=== PATIENT | female | born 1965 | race Caucasian/White ===

== ENCOUNTER 2019-08-17 05:57 | Day surgery (SDC) | payer BC, OTHER, SELFPAY ==
[2019-08-16 14:01] VITALS: BMI 28.3
[2019-08-17 06:49] VITALS: BP 139/70; PULSE 63; RESP 18; TEMP 36.3; O2SAT 98
--- NOTE | 2019-08-17 06:55 | ANES.PREANES ---
Pre-Anesthetic Assessment Pre-Anesthetic Assessment: Height/Weight: Height 1.65 m Weight 77.111 kg Temp Pulse Resp BP Pulse Ox 97.4 F L 63 18 139/70 98 08/17/19 06:49 08/17/19 06:49 08/17/19 06:49 08/17/19 06:49 08/17/19 06:49 Preop Diagnosis: Right Carpal Tunnel Proposed Procedure: Operation Date: 08/17/19 07:00 Proposed Procedures p Carpal Tunnel Release [id number] G56.00(Right) - James Mcfarlane MD Social: Social History: No alcohol and No tobacco Exam: Pre-Anes Outpt Exam: alert, oriented x 3, clear to auscultation bilaterally and regular rate & rhythm Airway: Submandibular: WNL Cervical ROM: WNL MP: 2 History/ROS: No significant complaints Anesthetic Plan: ASA status: I Anesthesia: Anesthesia Evaluation and MAC Risk of > 500 ml blood loss (7ml/kg in children): No PFSH Anesthesia PFSH: Social History Smoking and tobacco status: never smoked Alcohol intake: never Female Reproductive History: Date of last menstrual period: 08/21/14 Data Anesthesia Cardiac Studies: No Data to Display
--- NOTE | 2019-08-17 06:58 | PM.HPUD ---
H&P update H&P Update: DATE OF SURGERY/PROCEDURE: 08/17/19 DATE H&P PERFORMED: 07/27/19 H&P UPDATE INFORMATION: H&P completed within last 30 days and No changes to prior documentation PREOP DIAGNOSIS: Right carpal tunnel syndrome PRIMARY INDICATION FOR PROCEDURE: Continued numbness and pain right upper extremity PLANNED PROCEDURE: Operation Date: 08/17/19 07:00 Proposed Procedures p Carpal Tunnel Release [id number] G56.00(Right) - James Mcfarlane MD Full H&P Perinent History: Social History: Social History Smoking and tobacco status: never smoked Alcohol intake: never
[2019-08-17] MEDS: sodium chloride 0.9% 1,000 ML 30 ML IV (07:07)
[2019-08-17 07:55] VITALS: BP 140/76; PULSE 67; RESP 16; TEMP 36.1; O2SAT 98
--- NOTE | 2019-08-17 07:57 | P.OP_ITS ---
Operative Report Date of procedure: 08/17/19 Pre-op Diagnosis: Right carpal tunnel syndrome Post-op diagnosis: same Post-op Findings: No masses or space-occupying lesions are seen within the carpal Pathology: none sent Anesthesia: Other (Best block) Tourniquet time (min): 21 Complications: None Findings: No masses or space-occupying lesions were seen within the carpal tunnel Condition: stable Disposition: same day Procedure: Patient was taken to the operating room and anesthesia provided by the anesthesia service. She was prepped and draped with the arm exposed. A timeout was performed. A 3 cm long incision was made in line with the fourth ray from the distal edge of the carpal tunnel extending proximally. The subcutaneous fat and palmar fascia was divided with a scalpel blade. Under roland pe magnification the ulnar neurovascular bundle was identified distally. A hemostat could be passed under the transverse carpal ligament allowing the distal 25% to be divided. A slotted guide was then passed beneath the transverse carpal ligament and the middle 50% divided. Blunt scissors were then passed over the guide freeing the proximal ligament. The tourniquet was deflated. Hemostasis provided with electrocautery. Wound edges were infiltrated with 10 cc of a half percent Marcaine solution. Skin edges were reapproximated with 3-0 Prolene. Sterile dressings were applied. The patient was taken to the recovery room in stable condition
[2019-08-17 08:20] VITALS: BP 152/86; PULSE 60; RESP 18; TEMP 36.3; O2SAT 98
== END 2019-08-17 08:45 | disposition home or self-care (01) ==
PROVIDERS: Family Provider Registered Nurse; PCP Registered Nurse; Visit Provider Orthopaedic Surgery
PROC: (CPT 64721; principal; 2019-08-17 07:00)
DX: G56.01 Carpal tunnel syndrome, right upper limb (principal)
CPT/HCPCS: 64721; 12345; 96365; J0690; J2001; J2704; J3490; J7030

== ENCOUNTER → 2020-03-27 11:31 | Outpatient (BNVA) | payer OTHER, SELFPAY | PROVIDERS: Family Provider Registered Nurse; PCP Registered Nurse; Visit Provider Nurse Practitioner Family | DX: Z20.828 Contact with and (suspected) exposure to other viral communicable diseases (principal) | CPT/HCPCS: 87635 ==

== ENCOUNTER 2020-10-29 10:01 | Outpatient (CLI) | payer OTHER, SELFPAY ==
--- NOTE | 2020-10-29 10:15 | US_ITS ---
WS: [id number] ULTRASOUND ABDOMEN LIMITED CLINICAL INFORMATION: K21.9 - Gastro-esophageal reflux disease without esophagitis COMPARISON: None. FINDINGS: Liver Size: Normal. Craniocaudal length: 13.5 cm. Echogenicity: Normal. Surface nodularity: None. Mass (size and location): None. Bile ducts Intrahepatic ducts: Normal. Common bile duct diameter: 0.3 cm. Gallbladder Normal. Gallstones: None. Gallbladder sludge: None. Gallbladder wall thickening: None. Pericholecystic fluid: None. Sonographic Canas sign: Absent. Pancreas Normal as visualized. Right kidney: Normal. Hydronephrosis: None. Size: 11.7 cm x 4.6 cm x 4.8 cm. Abdominal aorta and IVC Visualized portions are normal. Ascites: None. US/US gall bladder [id number] IMPRESSION: Normal abdominal ultrasound
== END 2020-10-29 10:02 | disposition home or self-care (01) ==
LOC: US 10:03
PROVIDERS: PCP Registered Nurse; Visit Provider Registered Nurse
DX: K21.9 Gastro-esophageal reflux disease without esophagitis (principal)
CPT/HCPCS: 76705